=== PATIENT | female | born 1980 | race Caucasian/White ===

== ENCOUNTER 2016-12-19 14:23 | Observation (INO) | payer OTHER ==
[~2016-12-19] VITALS: Ht 180.3 cm; Wt 84.5 kg
[2016-12-19] MEDS ORDERED: ENOX80IN SQ (15:28)
[2016-12-19] MEDS ORDERED: ASPI81TA28 PO (15:28)
[2016-12-19] MEDS ORDERED: CLR10 PO (15:28)
[2016-12-19] MEDS ORDERED: FLUT0.15 NAE (15:28)
--- NOTE | 2016-12-19 15:47 | EMERGENCY ROOM VISIT NOTE ---
History Report prepared by Triston: David Isbell Under the Supervision of: Dr. Cristino Turner M.D. First contact with patient: 15:20 Chief Complaint: NEURO SYMPTOMS Stated Complaint: FACIAL/LF ARM NUMBNESS,HIGH BP Nursing Triage Summary: Triage note: pt reports "i feel like i might pass out and my whole left side is numb." pt reports left sided numbness has been increasing over the past several days. pt able to move all extremities in triage. pt mother reports pt has hx of clotting disorder "and she has stents in her vena cava." History of Present Illness The patient is a 36 year old female who presents to the Emergency Room with complaints of persistent left face, arm, and leg paraesthesias beginning about 3 days ago. She notes she has been sick for the past couple of days, and had been doing work outdoors 3 days ago in the cold. She notes at this time, she developed swelling to her bottom lip, and pressure in her temples. The patient went to her PCP and was told this may be allergies. She reports that night she developed a fever, which has resolved this morning. Today, she started to feel as if she was going to pass out, and was experiencing pins and needles sensation in her left shoulder, down to her fingers, left leg, and left side of her neck and face. She adds that her blood pressure was in the 150s which is high for her. The patient reports having a clotting a disorder, and had a clot about 10 years ago. She indicates that her vena cava is stented, and is not currently on Lovenox. She admits to currently taking a baby aspirin, and adds that she has varicose veins in her legs and leg swelling at baseline. The patient denies any recent falls or head trauma, or shortness of breath, but admits to some pain in the middle of her back. The patient reports a family history of clotting disorder. Review of Systems See HPI for pertinent positives & negatives. A total of 10 systems reviewed and were otherwise negative. 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 Family History Diabetes mellitus FHx: cancer FHx: heart disease Hypertension Seizures Social History Smoking Status: Never Smoker Smokeless Tobacco Use: No Alcohol Use: occasionally Housing Status: lives with family Occupation Status: unemployed Current/Historical Medications Scheduled Aspirin (Aspirin Ec), 81 MG PO DAILY Scheduled PRN Enoxaparin (Lovenox), 80 MG SQ UD PRN for Risk for Blood Clot/Traveling Fluticasone Propionate (Nasal) (Flonase Allergy Relief), 2 SPRAYS RICHY DAILY PRN for Allergy Symptoms Loratadine (Claritin), 10 MG PO DAILY PRN for Allergy Symptoms Allergies Uncoded Allergies: SYNTHETIC HORMONES (Allergy, Intermediate, Risk for blood clots, 12/19/16) Physical Exam Vital Signs Date Time Temp Pulse Resp B/P Pulse Ox O2 Delivery O2 Flow Rate FiO2 12/19/16 15:42 78 16 146/86 98 Room Air 12/19/16 14:29 36.6 85 18 174/108 99 Room Air Physical Exam GENERAL: Patient is anxious appearing and in no acute distress. HEENT: No acute trauma, normocephalic atraumatic, mucous membranes moist, no nasal congestion, no scleral icterus. NECK: No stridor, no adenopathy, no meningismus, trachea is midline. LUNGS: No dyspnea. Clear to auscultation and equal bilaterally. No wheeze, no rhonchi. HEART: Regular rate and rhythm. No murmurs, rubs, gallops appreciated. ABDOMEN: Soft, nontender, bowel sounds positive, no masses appreciated, no peritonitis. BACK: No midline tenderness, no CVA tenderness EXTREMITIES: Normal motion all extremities, no cyanosis, no edema. NEUROLOGIC: Alert and oriented, no acute motor or sensory deficits, no focal weakness, cranial nerves grossly intact. SKIN: No rash, no jaundice, no diaphoresis. Medical Decision & Procedures ER Provider Diagnostic Interpretation: Radiology results and stated below per my review and radiologist interpretation: HEAD CT NONCONTRAST Findings: The paranasal sinuses and mastoid air cells are clear. The calvarium and skull base are intact. The ventricles and sulci are within normal limits. There is no mass, hematoma, midline shift, or acute infarct. Impression: No acute intracranial abnormality. Electronically signed by: Yemi Riddle M.D. 12/19/2016 4:22 PM Dictated Date/Time: 12/19/2016 4:20 PM CHEST ONE VIEW PORTABLE FINDINGS: The lungs are clear. Cardiac silhouette is normal in size. No pleural effusions. No pneumothorax. IMPRESSION: No acute process. Electronically signed by: Yemi Riddle M.D. 12/19/2016 3:55 PM Dictated Date/Time: 12/19/2016 3:55 PM Laboratory Results 12/19/16 14:50 Red Blood Count 4.37, Mean Corpuscular Volume 96.6, Mean Corpuscular Hemoglobin 32.5, Mean Corpuscular Hemoglobin Concent 33.6, Mean Platelet Volume 11.8, Neutrophils (%) (Auto) 53.8, Lymphocytes (%) (Auto) 26.1, Monocytes (%) (Auto) 17.3, Eosinophils (%) (Auto) 2.2, Basophils (%) (Auto) 0.3, Neutrophils # (Auto ) 2.00, Lymphocytes # (Auto) 0.97, Monocytes # (Auto) 0.64, Eosinophils # (Auto ) 0.08, Basophils # (Auto) 0.01 12/19/16 14:50 Test 12/19/16 14:50 White Blood Count 3.71 K/uL (4.8-10.8) Red Blood Count 4.37 M/uL (4.2-5.4) Hemoglobin 14.2 g/dL (12.0-16.0) Hematocrit 42.2 % (37-47) Mean Corpuscular Volume 96.6 fL (80-100) Mean Corpuscular Hemoglobin 32.5 pg (25-34) Mean Corpuscular Hemoglobin Concent 33.6 g/dl (32-36) Platelet Count 97 K/uL (130-400) Mean Platelet Volume 11.8 fL (7.4-10.4) Neutrophils (%) (Auto) 53.8 % Lymphocytes (%) (Auto) 26.1 % Monocytes (%) (Auto) 17.3 % Eosinophils (%) (Auto) 2.2 % Basophils (%) (Auto) 0.3 % Neutrophils # (Auto) 2.00 K/uL (1.4-6.5) Lymphocytes # (Auto) 0.97 K/uL (1.2-3.4) Monocytes # (Auto) 0.64 K/uL (0.11-0.59) Eosinophils # (Auto) 0.08 K/uL (0-0.5) Basophils # (Auto) 0.01 K/uL (0-0.2) RDW Standard Deviation 45.0 fL (36.4-46.3) RDW Coefficient of Variation 12.7 % (11.5-14.5) Immature Granulocyte % (Auto) 0.3 % Immature Granulocyte # (Auto) 0.01 K/uL (0.00-0.02) Platelet Estimate DECREASED Red Blood Cell Morphology Unremarkable Erythrocyte Sedimentation Rate 5 mm/hr (0-21) Prothrombin Time 10.8 SECONDS (9.0-12.0) Prothromb Time International Ratio 1.0 (0.9-1.1) Activated Partial Thromboplast Time 25.7 SECONDS (21.0-31.0) Partial Thromboplastin Ratio 1.0 Anion Gap 6.0 mmol/L (3-11) Est Creatinine Clear Calc Drug Dose 93.6 ml/min Estimated GFR () 92.8 Estimated GFR (Non- 80.0 BUN/Creatinine Ratio 13.3 (10-20) Calcium Level 9.0 mg/dl (8.5-10.1) Troponin I 0.019 ng/ml (0-0.045) C-Reactive Protein 0.84 mg/dl (0-0.29) Thyroid Stimulating Hormone (TSH) 4.890 uIu/ml (0.300-4.500) Monoscreen NEG (NEG) Laboratory results as reviewed by me. ECG Indication: other (neuro symptoms) Rate (beats per minute): 79 Rhythm: normal sinus Findings: no acute ischemic change, no ectopy ED Course 1538: The patient was evaluated in room A12A. A complete history and physical exam was performed. 1635: Discussed the patient's case with VIRGIE Cutler. The patient will be evaluated for further treatment and disposition. Medical Decision Differential: Sepsis, Infectious (UTI/Pneumonia/Meningitis/etc), Metabolic/ Electrolyte Abnormality, Cardiac, Hepatic, Endocrine, Toxicologic, Neurologic, amongst other pathologies entertained. 36 yr old female arrives for evaluation of left arm paresthesias with some head/ neck/left leg involvement as well. No neuro deficits. She is HTN though suspect this is more anxiety related. She does have history of clotting disorder and is not currently on blood thinners. ASA taken by patient earlier today. Symptoms sound viral which may explain the thrombocytopenia and mild neutropenia as well. However, with her clotting disorder, symptoms and HTN I can not reliably rule out stroke in ED and thus have asked hospitalist to evaluate for further work-up and evaluation. Consults Time Called: 1630 Consulting Physician: VIRGIE Cutler Returned Call: 1635 Discussed the patient's case with VIRGIE Cutler. The patient will be evaluated for further treatment and disposition. Impression Primary Impression: Arm paresthesia, left Additional Impressions: Thrombocytopenia Neutropenia Scribe Attestation The scribe's documentation has been prepared under my direction and personally reviewed by me in its entirety. I confirm that the note above accurately reflects all work, treatment, procedures, and medical decision making performed by me. Departure Information Dispostion Being Evaluated By Hospitalist Referrals Kellie Delgado M.D. (PCP) Patient Instructions [facility] Problem Qualifiers Additional Impressions: Neutropenia Neutropenia type: unspecified Qualified Codes: D70.9 - Neutropenia, unspecified
[2016-12-19 15:52] LABS: PROTHROMBIN TIME (PATIENT) 10.8 SECONDS (9.0-12.0)
[2016-12-19 15:56] LABS: BUN/CREATININE RATIO 13.3 (10-20); CREATININE 0.91 mg/dl (0.60-1.20); POTASSIUM 3.9 mmol/L (3.5-5.1)
--- NOTE | 2016-12-19 15:58 | DIAGNOSTIC IMAGING REPORT ---
CHEST ONE VIEW PORTABLE HISTORY: Atypical Chest Pain COMPARISON: None. FINDINGS: The lungs are clear. Cardiac silhouette is normal in size. No pleural effusions. No pneumothorax. IMPRESSION: No acute process. Electronically signed by: Yemi Riddle M.D. 12/19/2016 3:55 PM Dictated Date/Time: 12/19/2016 3:55 PM
[2016-12-19 16:18] LABS: HEMATOCRIT 42.2 % (37-47); MEAN CELL VOLUME 96.6 fL (80-100); MEAN CORPUSCULAR HEMOGLOBIN 32.5 pg (25-34); MEAN CORPUSCULAR HGB CONC 33.6 g/dl (32-36); MEAN PLATELET VOLUME 11.8 fL (7.4-10.4); PLATELET COUNT 97 K/uL (130-400); RED BLOOD COUNT 4.37 M/uL (4.2-5.4); WHITE BLOOD COUNT 3.71 K/uL (4.8-10.8)
[2016-12-19 16:19] LABS: BASO % 0.3 %; BASO ABS # 0.01 K/uL (0-0.2); COMPLETE YES; EOS % 2.2 %; IG% 0.3 %; LYMPH % 26.1 %; LYMPH ABS # 0.97 K/uL (1.2-3.4); MONO % 17.3 %; NEUT % 53.8 %; PLT ESTIMATE DECREASED
--- NOTE | 2016-12-19 16:24 | DIAGNOSTIC IMAGING REPORT ---
HEAD CT NONCONTRAST CT DOSE: 537.48 mGy.cm HISTORY: left side body paresthesias/hypertension. History clotting dz TECHNIQUE: Multiaxial CT images of the head were performed without the use of intravenous contrast. Automated exposure control was utilized for this study. Comparison: None. Findings: The paranasal sinuses and mastoid air cells are clear. The calvarium and skull base are intact. The ventricles and sulci are within normal limits. There is no mass, hematoma, midline shift, or acute infarct. Impression: No acute intracranial abnormality. Electronically signed by: Yemi Riddle M.D. 12/19/2016 4:22 PM Dictated Date/Time: 12/19/2016 4:20 PM
[2016-12-19] MEDS ORDERED: ONDANSETRON INJ 2 MG/ML 2 ML VIAL IV PRN (17:30)
[2016-12-19] MEDS ORDERED: PHARMACIST DISCHARGE MED REC CONSULT PRN (17:30)
[2016-12-19 17:49] LABS: C-REACTIVE PROTEIN 0.84 mg/dl (0-0.29); THYROID STIMULATING HORMONE 4.89 uIu/ml (0.300-4.500)
--- NOTE | 2016-12-19 18:24 | History and Physical ---
History & Physical Date & Time of Service: Dec 19, 2016 at 17:47 Chief Complaint: Headache, Left Facial, Arm, and Leg Numbness Primary Care Physician: Kellie Delgado M.D. History of Present Illness 36 year old female who presents to the ER with headache and left hemiparesis. Patient reports a few days ago she was doing a lot of yard work outside. When she went into her home, she noted the bridge of her nose and bottom lip to be swollen. She went to her PCP who prescribed her Claritin and Flonase. She reports those symptoms resolved and then she developed malaise, low grade fever , BL temporal headache, and sinus pressure. She again went back to her PCP and was diagnosed with a viral URI. She reports no fever as of last night and the other symptoms are going away as well. This morning patient reports that she felt lightheaded and dizzy at times. She reports it was sometimes associated with standing. She then developed left arm and left leg numbness. She denies weakness in the LUE or LLE. No headache aside from the aforementioned. She denies blurred vision and neck stiffness. No chest pain, shortness of breath, or palpitations. No abdominal pain, nausea, vomiting, or diarrhea. She denies urinary symptoms. In the ER, patient's work up is unremarkable. Numbness is improving and reports she only notes the leg numbness when she ambulates. 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 Status: Chronic (3) Renal vein thrombosis Permanent Comment: s/p stent Status: Chronic Family History Scleroderma BROTHER Social History Smoking Status: Former Smoker Alcohol Use: 3-4 glasses of wine or beers/day Immunizations History of Influenza Vaccine: Yes Influenza Vaccine Date: Jun 11, 2016 History of Tetanus Vaccine?: Yes Tetanus Immunization Date: Aug 29, 2009 Multi-Drug Resistant Organisms History of MDRO: No Allergies Uncoded Allergies: SYNTHETIC HORMONES (Allergy, Intermediate, Risk for blood clots, 12/19/16) Home Medications Scheduled Aspirin (Aspirin Ec), 81 MG PO DAILY Scheduled PRN Enoxaparin (Lovenox), 80 MG SQ UD PRN for Risk for Blood Clot/Traveling Fluticasone Propionate (Nasal) (Flonase Allergy Relief), 2 SPRAYS RICHY DAILY PRN for Allergy Symptoms Loratadine (Claritin), 10 MG PO DAILY PRN for Allergy Symptoms Review of Systems 10 point review of systems was completed with the pertinent positives and negatives noted per the HPI Physical Exam Vital Signs Date Time Temp Pulse Resp B/P Pulse Ox O2 Delivery O2 Flow Rate FiO2 12/19/16 15:42 78 16 146/86 98 Room Air 12/19/16 14:29 36.6 85 18 174/108 99 Room Air General Appearance: no apparent distress Head: normocephalic Eyes: normal inspection ENT: hearing grossly normal Neck: supple, no JVD Respiratory/Chest: lungs clear, normal breath sounds, no respiratory distress Cardiovascular: regular rate, rhythm, no edema, normal peripheral pulses Abdomen/GI: normal bowel sounds, non tender, soft Extremities/Musculoskelatal: normal inspection, no calf tenderness Neurologic/Psych: alert, oriented x 3, + sensory deficit (mild decreased sensation to left face and LUE), + pertinent finding (no motor deficits, strength strong and equal in BLUE and BLLE) Skin: normal color, warm/dry Diagnostics Laboratory Results Results Past 24 Hours Test 12/19/16 14:50 Range/Units White Blood Count 3.71 4.8-10.8 K/uL Red Blood Count 4.37 4.2-5.4 M/uL Hemoglobin 14.2 12.0-16.0 g/dL Hematocrit 42.2 37-47 % Mean Corpuscular Volume 96.6 80-100 fL Mean Corpuscular Hemoglobin 32.5 25-34 pg Mean Corpuscular Hemoglobin Concent 33.6 32-36 g/dl Platelet Count 97 130-400 K/uL Mean Platelet Volume 11.8 7.4-10.4 fL Neutrophils (%) (Auto) 53.8 % Lymphocytes (%) (Auto) 26.1 % Monocytes (%) (Auto) 17.3 % Eosinophils (%) (Auto) 2.2 % Basophils (%) (Auto) 0.3 % Neutrophils # (Auto) 2.00 1.4-6.5 K/uL Lymphocytes # (Auto) 0.97 1.2-3.4 K/uL Monocytes # (Auto) 0.64 0.11-0.59 K/uL Eosinophils # (Auto) 0.08 0-0.5 K/uL Basophils # (Auto) 0.01 0-0.2 K/uL RDW Standard Deviation 45.0 36.4-46.3 fL RDW Coefficient of Variation 12.7 11.5-14.5 % Immature Granulocyte % (Auto) 0.3 % Immature Granulocyte # (Auto) 0.01 0.00-0.02 K/uL Platelet Estimate DECREASED Red Blood Cell Morphology Unremarkable Erythrocyte Sedimentation Rate 5 0-21 mm/hr Prothrombin Time 10.8 9.0-12.0 SECONDS Prothromb Time International Ratio 1.0 0.9-1.1 Activated Partial Thromboplast Time 25.7 21.0-31.0 SECONDS Partial Thromboplastin Ratio 1.0 Sodium Level 141 136-145 mmol/L Potassium Level 3.9 3.5-5.1 mmol/L Chloride Level 106 98-107 mmol/L Carbon Dioxide Level 29 21-32 mmol/L Anion Gap 6.0 3-11 mmol/L Blood Urea Nitrogen 12 7-18 mg/dl Creatinine 0.91 0.60-1.20 mg/dl Est Creatinine Clear Calc Drug Dose 93.6 ml/min Estimated GFR () 92.8 Estimated GFR (Non- 80.0 BUN/Creatinine Ratio 13.3 10-20 Random Glucose 111 70-99 mg/dl Calcium Level 9.0 8.5-10.1 mg/dl Troponin I 0.019 0-0.045 ng/ml Diagnostic Radiology CT Head Impression: No acute intracranial abnormality. CXR IMPRESSION: No acute process. Impression Assessment and Plan LEFT SIDED PARESTHESIAS - admit to tele - patient presenting with paraesthesia involving the left side of her face, left arm, and left leg without associated motor weakness - hx of plasminogen deficiency with remote history of IVC and renal vein thrombosis - CT head negative - due to hypercoagulable state, need to rule out stroke - neuro checks, check MRI/MRA brain - neuro consult, input appreciated - continue ASA - other etiologies considered - complex migraine, rheumatologic disorder (i.e scleroderma as per brother was recently diagnosed with similar presenting symptoms) - HEMANT, scleroderma and centromere antibodies ordered HX PLASMINOGEN DEFICIENCY, IVC AND RENAL VEIN THROMBOSIS S/P STENT - now managed on ASA 81mg daily and PRN Lovenox for long travel or DVT PROPHYLAXIS - SCDs, ambulate DISPO - The patient will be placed as observation status for now until further work up is complete. Level of Care Telemetry Resuscitation Status FULL RESUSCITATION VTE Prophylaxis VTE Risk Assessment Done? Y/N: Yes Risk Level: Moderate Given or contraindicated: SCD's Note I have seen and examined the patient and agree with the note above. She has no focal deficits with tingling mostly in fingertips and not appreciable on exam in any upper dermatome. She has no other stroke-like symptoms. She does report some skin swelling/thickening? 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 Brother recently diagnosed with diffuse scleroderma and had similar symptoms one year ago. Cont with TIA workup, consult Neurology and will obtain autoantibodies for scleroderma in the setting of recent facial swelling, significant h/o Raynaud's, tendon issues in her hands and family h/o scleroderma. She has a Rheum appointment (initial encounter) for early March. If positive, this may expedite getting her seen earlier. DO Reji
[2016-12-19] MEDS ORDERED: IV FLUIDS COMPLETED PRN (18:30)
[2016-12-19 19:00] VITALS: BP 146/88; PULSE 79; TEMP 36.8; O2SAT 98; Ht 180.3 cm; Wt 84.5 kg
[2016-12-19 19:22] VITALS: BP 136/84; PULSE 74; TEMP 36.8; O2SAT 97
--- NOTE | 2016-12-19 21:48 | DIAGNOSTIC IMAGING REPORT ---
Brain MRI WITH AND WITHOUT CONTRAST HISTORY: Facial numbness. Left arm numbness. Stroke TECHNIQUE: Multiplanar multisequence MRI of the brain was performed both before and after the intravenous administration of contrast. COMPARISON STUDY: Head CT 12/19/2016. FINDINGS: There are no areas of restricted diffusion to suggest acute infarction. The midline structures are intact. The paranasal sinuses are clear. The mastoid air cells are clear. The ventricles and sulci are within normal limits for age. There is no mass, hematoma, midline shift. The major vascular flow-voids at the skull base are well maintained. Postcontrast sequences show no areas of abnormal enhancement. IMPRESSION: No acute intracranial abnormality. Electronically signed by: Yemi iRddle M.D. 12/19/2016 9:46 PM Dictated Date/Time: 12/19/2016 9:41 PM
--- NOTE | 2016-12-19 21:52 | DIAGNOSTIC IMAGING REPORT ---
Brain MRA HISTORY: Facial numbness. Left arm numbness. Stroke - Attention to [place] TECHNIQUE: 3-D [id number] MRA of the brain was performed without contrast. COMPARISON STUDY: None. FINDINGS: Visualized intracranial internal carotid arteries, distal vertebral arteries, and basilar artery are widely patent. There is no significant stenosis, occlusion, or aneurysm seen within the bilateral MCAs or pressfitter. The right KERI is widely patent. The left A2/A3 segment is hypoplastic in comparison to the right. However, there is no evidence for occlusion. IMPRESSION: The left A2/A3 segment is hypoplastic in comparison to the right. However, there is no evidence for occlusion. This could be congenital or due to vasospasm. Otherwise, no significant stenosis, occlusion, or aneurysm within the [place]. Electronically signed by: Yemi Riddle M.D. 12/19/2016 9:50 PM Dictated Date/Time: 12/19/2016 9:46 PM
[2016-12-19 23:55] VITALS: BP 121/72; PULSE 59; TEMP 36.7; O2SAT 99
[2016-12-20] VITALS (8 sets, daily range): BP systolic 111–142; BP diastolic 74–92; PULSE 57–80; TEMP 36.3–36.7; O2SAT 98–100
[2016-12-20] MEDS: ACETAMINOPHEN 325 MG TAB PO PRN ×3 (03:39→23:19)
[2016-12-20 05:50] LABS: ESTIMATED AVERAGE GLUCOSE 100 mg/dl; HA1C FLAG Normal (Normal)
[2016-12-20 06:59] LABS: HEMATOCRIT 39.8 % (37-47); MEAN CELL VOLUME 96.4 fL (80-100); MEAN CORPUSCULAR HEMOGLOBIN 32.2 pg (25-34); MEAN CORPUSCULAR HGB CONC 33.4 g/dl (32-36); RED BLOOD COUNT 4.13 M/uL (4.2-5.4); WHITE BLOOD COUNT 3.27 K/uL (4.8-10.8)
[2016-12-20 07:00] LABS: MEAN PLATELET VOLUME 11.4 fL (7.4-10.4); PLATELET COUNT 91 K/uL (130-400)
[2016-12-20 07:21] LABS: PLT ESTIMATE DECREASED
[2016-12-20 07:35] LABS: BUN/CREATININE RATIO 12.2 (10-20); CALCIUM 8.6 mg/dl (8.5-10.1); CREATININE 0.75 mg/dl (0.60-1.20); POTASSIUM 4.1 mmol/L (3.5-5.1)
[2016-12-20 07:39] LABS: CHOLESTEROL/HDL RATIO 1.7
[2016-12-20] MEDS: ASPIRIN 81 MG ECTAB PO SCH (07:47)
--- NOTE | 2016-12-20 10:47 | ECHOCARDIOGRAM REPORT ---
*NOTICE TO RECEIVING CONSTITUTION PARTY AGENCY This information is strictly Confidential and protected under [place] law. [place] law prohibits you from making any further disclosure of this information unless further disclosure is expressly permitted by the written consent of the person to whom it pertains or is authorized by law. A general authorization for the release of medical or other information is not sufficient for this purpose. Hospital accepts no responsibility if the information is made available to any other person, INCLUDING THE PATIENT. Interpretation Summary * Name: SANGEETHA MONTALVO Study Date: 12/20/2016 06:55 AM BP: 120/75 mmHg * Patient Location: C.2T\S\E218\S\1 HR: 57 * : 1980 (M/d/yyyy) Gender: Female Height: 71 in * Age: 36 yrs Ethnicity: CA Weight: 185 lb * Ordering Physician: Tamra Matthews * Referring Physician: Self, Referred * Performed By: Shital Strong RDCS * * Reason For Study: TIA * BSA: 2.0 m2 * History: TIA * -- Conclusions -- * Injection of contrast documented an interatrial shunt. * A tiny patent foramen ovale is suspected. * Otherwise normal echo. Procedure Details * A saline contrast injection was performed to assess for cardiac shunting. * The injection was performed through an intravenous line in the right arm. * The attending nurse who injected the saline contrast was DMITRIY TIJERINA RN. * A total of 20 cc of agitated saline was given. Left Ventricle * The left ventricle is normal in size. * There is normal left ventricular wall thickness. * Ejection Fraction = 55-60%. * Left ventricular systolic function is normal. Right Ventricle * The right ventricle is normal in size and function. * There is normal right ventricular wall thickness. * The right ventricular systolic function is normal. Atria * The left atrial size is normal. * Right atrial size is normal. * Injection of contrast documented an interatrial shunt. * A patent foramen ovale is suspected. Mitral Valve * The mitral valve is normal in structure and function. * There is no mitral valve stenosis. * There is no mitral regurgitation noted. Tricuspid Valve * The tricuspid valve is normal in structure and function. * There is trace tricuspid regurgitation. Aortic Valve * The aortic valve is normal in structure and function. * No aortic regurgitation is present. Pulmonic Valve * The pulmonic valve is normal in structure and function. * There is no pulmonic valvular regurgitation. Great Vessels * The aortic root is normal size. * No obvious dissection could be visualized. * The pulmonary artery is normal size. Pericardium/Pleural * There is no pericardial effusion. MMode 2D Measurements and Calculations IVSd 1.0 cm IVSs 1.3 cm LVIDd 4.7 cm LVIDs 3.3 cm LVPWd 1.2 cm LVPWs 1.7 cm IVS/LVPW 0.89 FS 29.5 % EDV(Teich) 100.0 ml ESV(Teich) 43.6 ml EF(Teich) 56.4 % EDV(cubed) 100.8 ml ESV(cubed) 35.4 ml EF(cubed) 64.9 % % IVS thick 28.1 % % LVPW thick 46.6 % LV mass(C)d 183.3 grams LV mass(C)dI 89.9 grams/m\S\2 LV mass(C)s 179.4 grams LV mass(C)sI 87.9 grams/m\S\2 SV(Teich) 56.4 ml SI(Teich) 27.7 ml/m\S\2 SV(cubed) 65.4 ml SI(cubed) 32.1 ml/m\S\2 Ao root diam 2.9 cm Ao root area 6.6 cm\S\2 LA dimension 3.4 cm LA/Ao 1.2 LVAd ap4 35.1 cm\S\2 LVLd ap4 9.2 cm EDV(MOD-sp4) 117.1 ml EDV(sp4-el) 114.2 ml LVAs ap4 20.9 cm\S\2 LVLs ap4 8.0 cm ESV(MOD-sp4) 48.2 ml ESV(sp4-el) 46.1 ml EF(MOD-sp4) 58.9 % EF(sp4-el) 59.6 % LVAd ap2 31.9 cm\S\2 LVLd ap2 9.1 cm EDV(MOD-sp2) 100.3 ml EDV(sp2-el) 94.3 ml LVAs ap2 18.5 cm\S\2 LVLs ap2 7.9 cm ESV(MOD-sp2) 39.8 ml ESV(sp2-el) 36.8 ml EF(MOD-sp2) 60.3 % EF(sp2-el) 61.0 % LVLd %diff -0.31 % EDV(MOD-bp) 108.1 ml LVLs %diff -1.71 % ESV(MOD-bp) 43.5 ml EF(MOD-bp) 59.8 % SV(MOD-sp4) 68.9 ml SI(MOD-sp4) 33.8 ml/m\S\2 SV(MOD-sp2) 60.4 ml SI(MOD-sp2) 29.6 ml/m\S\2 SV(MOD-bp) 64.6 ml SI(MOD-bp) 31.7 ml/m\S\2 SV(sp4-el) 68.1 ml SI(sp4-el) 33.4 ml/m\S\2 SV(sp2-el) 57.5 ml SI(sp2-el) 28.2 ml/m\S\2 Doppler Measurements and Calculations MV E max torie 71.8 cm/sec MV A max torie 42.2 cm/sec MV E/A 1.7 MV dec time 0.27 sec Ao V2 max 114.7 cm/sec Ao max PG 5.3 mmHg Ao max PG (full) 0.06 mmHg LV V1 max PG 5.2 mmHg LV V1 max 114.0 cm/sec
--- NOTE | 2016-12-20 10:50 | Progress Note ---
Internal Med Progress Note Date of Service: Dec 20, 2016. Provider Documentation: SUBJECTIVE: The patient was seen and examined Complains of Headache Numbness and weakness of left sided extremities are almost resolved No new symptoms OBJECTIVE: Vital Signs-as noted below Exam: General-No distress at rest Eyes-normal ENT-normal Neck-Supple Lungs-Clear to auscultate bilaterally Heart-Regular,no murmur appreciated Abdomen-Benign,no masses,bowel sound present Extremities-No edema Minimal small vessel varicose veins bilaterally Neuro-AAOx3 No focal Neuro deficit Lab data as noted below. 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 MRA -The left A2/A3 segment is hypoplastic in comparison to the right. However, there is no evidence for occlusion. This could be congenital or due to vasospasm. Otherwise, no significant stenosis, occlusion, or aneurysm within the [place]. 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 -Initial Presentation in 2003 with back pain and bilateral legs swelling following the use of OCP for ~2 weeks -Had had 8 interventional radiologic procedure in 1 week to take care of thick and attached thrombus in IVC and Renal veins -S/P Stent in IVC and Renal Veins in 2003,recheck in 2004 and 2005 -wan on Coumadin for 1 year after the procedure and then tooh Pletal and Plavix for a some time -has been on Baby Aspirin for the last ~10 years - now managed on ASA 81mg daily and PRN Lovenox for long travel or -will need Hematology and Rheumatology appointment as an OP DVT PROPHYLAXIS - SCDs, ambulate DISPO Awaited Vital Signs: Date Time Temp Pulse Resp B/P Pulse Ox O2 Delivery O2 Flow Rate FiO2 12/20/16 16:00 100 Room Air 12/20/16 15:50 36.7 80 20 132/82 98 Room Air 12/20/16 12:14 36.6 70 16 122/88 99 Room Air 12/20/16 12:00 100 Room Air 12/20/16 08:00 100 Room Air 12/20/16 07:49 36.3 73 16 142/92 100 Room Air 12/20/16 04:02 Room Air 12/20/16 03:36 36.7 57 18 120/75 100 Room Air 12/20/16 00:02 Room Air 12/19/16 23:55 36.7 59 15 121/72 99 Room Air 12/19/16 20:04 Room Air 12/19/16 19:22 36.8 74 18 136/84 97 Room Air 12/19/16 19:00 36.8 79 19 146/88 98 Room Air Lab Results: Results Past 24 Hours Test 12/20/16 06:40 Range/Units White Blood Count 3.27 4.8-10.8 K/uL Red Blood Count 4.13 4.2-5.4 M/uL Hemoglobin 13.3 12.0-16.0 g/dL Hematocrit 39.8 37-47 % Mean Corpuscular Volume 96.4 80-100 fL Mean Corpuscular Hemoglobin 32.2 25-34 pg Mean Corpuscular Hemoglobin Concent 33.4 32-36 g/dl RDW Standard Deviation 44.8 36.4-46.3 fL RDW Coefficient of Variation 12.9 11.5-14.5 % Platelet Count 91 130-400 K/uL Mean Platelet Volume 11.4 7.4-10.4 fL Platelet Estimate DECREASED Erythrocyte Sedimentation Rate 2 0-21 mm/hr Sodium Level 140 136-145 mmol/L Potassium Level 4.1 3.5-5.1 mmol/L Chloride Level 106 98-107 mmol/L Carbon Dioxide Level 30 21-32 mmol/L Anion Gap 4.0 3-11 mmol/L Blood Urea Nitrogen 9 7-18 mg/dl Creatinine 0.75 0.60-1.20 mg/dl Est Creatinine Clear Calc Drug Dose 113.6 ml/min Estimated GFR () 117.2 Estimated GFR (Non- 101.1 BUN/Creatinine Ratio 12.2 10-20 Random Glucose 94 70-99 mg/dl Calcium Level 8.6 8.5-10.1 mg/dl Triglycerides Level 80 0-150 mg/dl Cholesterol Level 129 0-200 mg/dl HDL Cholesterol 76 mg/dl LDL Cholesterol, Calculated 37 mg/dl VLDL Cholesterol, Calculated 16 mg/dl Cholesterol/HDL Ratio 1.7
[2016-12-20] MEDS ORDERED: ENOXAPARIN 40 MG/0.4 ML SYR SQ ONE (12:00)
--- NOTE | 2016-12-20 14:24 | Neurology Consultation ---
Neurology Consultation Date of Consultation: Dec 20, 2016. Attending Physician: Juan Miguel Conley M.D. Primary Care Physician: Kellie Delgado M.D. Reason for Consultation: L hemiparesthesia History of Present Illness Source: patient Florinda is a 36 year old female who has a PMH plasminogen deficiency, raynauds, vasovagal syndrome presents to the ER with headache and left hemiparesis. She had been working outside planting 15 trees. When she looked in the mirror she saw the bridge of her nose and bottom lip to be swollen. She went to her PCP who prescribed her Claritin and Flonase. Those symptoms resolved but she then developed malaise, low grade fever, BL temporal headache, and sinus pressure which she was treated for a viral URI. She started to feel light headed reports that she felt lightheaded and dizzy at times which she often gets with standing. She then developed left arm and left leg numbness with no tingling or weakness. no blurred or double vision, CP, SOB, abdominal pain, N,V,D. The numbness has improved and reports she the tips of her finger are numb. She also starting having a headache in the neck and comes up over her head on the left side. She has no history of migraines. The only medications she takes regularly is aspirin 81 mg which is all she takes for her clotting disorder. she states she was tested for Lyme as an outpatient and it was reportedly negative Past Medical/Surgical History Medical Problems: (1) Arm paresthesia, left Status: Acute (2) Neutropenia Status: Acute (3) Thrombocytopenia Status: Acute Social History Alcohol Use: 3-4 glasses of wine or beers/day Housing Status: lives with family Allergies Uncoded Allergies: SYNTHETIC HORMONES (Allergy, Intermediate, Risk for blood clots, 12/19/16) Current Inpatient Medications Current Inpatient Medications Medications (Trade) Dose Ordered Sig/Kelsey Route Start Time Stop Time Status Last Admin Dose Admin Acetaminophen (Tylenol Tab) 650 mg Q4H PRN PO 12/19/16 17:30 01/18/17 17:29 12/20/16 07:46 650 MG Ondansetron HCl (Zofran Inj) 4 mg Q6H PRN IV 12/19/16 17:30 01/18/17 17:29 Miscellaneous Information (Pharmacist Discharge Med Rec Consult) 1 ea UD PRN N/A 12/19/16 17:30 01/18/17 17:29 Aspirin (Ecotrin Tab) 81 mg DAILY PO 12/20/16 09:00 01/19/17 08:59 12/20/16 07:47 81 MG Miscellaneous (Iv Fluids Completed) 1 ea PRN PRN N/A 12/19/16 18:30 12/19/17 18:29 Enoxaparin Sodium (Lovenox Inj) 40 mg QAM SQ 12/21/16 09:00 01/20/17 08:59 Physical Exam Vital Signs (Past 24 Hrs): Date Time Temp Pulse Resp B/P Pulse Ox O2 Delivery O2 Flow Rate FiO2 12/20/16 12:14 36.6 70 16 122/88 99 Room Air 12/20/16 12:00 100 Room Air 12/20/16 08:00 100 Room Air 12/20/16 07:49 36.3 73 16 142/92 100 Room Air 12/20/16 04:02 Room Air 12/20/16 03:36 36.7 57 18 120/75 100 Room Air 12/20/16 00:02 Room Air 12/19/16 23:55 36.7 59 15 121/72 99 Room Air 12/19/16 20:04 Room Air 12/19/16 19:22 36.8 74 18 136/84 97 Room Air 12/19/16 19:00 36.8 79 19 146/88 98 Room Air 12/19/16 15:42 78 16 146/86 98 Room Air 12/19/16 14:29 36.6 85 18 174/108 99 Room Air Physical Exam: Constitutional: appearance nourished, healthy and normal Ears, Nose, Mouth and Throat: mucous membranes moist, no injection and skin normal, eyes normal Cardiovascular: normal S-1 and S-2 and regular rate and rhythm Respiratory: clear to auscultation (CTA) and no rales, rhonchi or wheeze Musculoskeletal: no peripheral edema and good distal pulses Skin: no stigmata of neurocutaneous disease noted and normal and intact Eyes: extraocular muscles intact (EOMI) and pupils equal, round and reactive to light (PERRL), miotic NEUROLOGIC EXAMINATION: Mental status: Alert and interactive Oriented to full date and location Oriented to person Speech fluent with no evidence of aphasia Cranial Nerves smile eye brow raise symmetric tongue midline Reflexes: Deep tendon reflexes were symmetrical and graded 2/5. Plantar responses were flexor. Sensory: no deficit to cool touch, vibration bilateral tingling into finger and thumb with Phalen test Tinel test Coordination: Romberg absent Gait/Stance: Posture normal. Gait normal: with steady with steps, base, turning, heel and toe walking and tandem gait. Motor: Negative for pronator drift of out stretched arms with eyes closed. Strength: biceps triceps deltoids intrinsic 5/5 bilaterally, hip flex patellar flex ext plantar flex ext Laboratory Results Past 24 Hours: 12/20/16 06:40 12/20/16 06:40 Test 12/19/16 14:50 12/20/16 06:40 Immature Granulocyte % (Auto) 0.3 % White Blood Count 3.71 K/uL (4.8-10.8) Red Blood Count 4.37 M/uL (4.2-5.4) 4.13 M/uL (4.2-5.4) Hemoglobin 14.2 g/dL (12.0-16.0) Hematocrit 42.2 % (37-47) Mean Corpuscular Volume 96.6 fL (80-100) 96.4 fL (80-100) Mean Corpuscular Hemoglobin 32.5 pg (25-34) 32.2 pg (25-34) Mean Corpuscular Hemoglobin Concent 33.6 g/dl (32-36) 33.4 g/dl (32-36) Platelet Count 97 K/uL (130-400) Mean Platelet Volume 11.8 fL (7.4-10.4) 11.4 fL (7.4-10.4) Neutrophils (%) (Auto) 53.8 % Lymphocytes (%) (Auto) 26.1 % Monocytes (%) (Auto) 17.3 % Eosinophils (%) (Auto) 2.2 % Basophils (%) (Auto) 0.3 % Neutrophils # (Auto) 2.00 K/uL (1.4-6.5) Lymphocytes # (Auto) 0.97 K/uL (1.2-3.4) Monocytes # (Auto) 0.64 K/uL (0.11-0.59) Eosinophils # (Auto) 0.08 K/uL (0-0.5) Basophils # (Auto) 0.01 K/uL (0-0.2) Immature Granulocyte # (Auto) 0.01 K/uL (0.00-0.02) Red Blood Cell Morphology Unremarkable Erythrocyte Sedimentation Rate 5 mm/hr (0-21) Prothrombin Time 10.8 SECONDS (9.0-12.0) Prothromb Time International Ratio 1.0 (0.9-1.1) Activated Partial Thromboplast Time 25.7 SECONDS (21.0-31.0) Partial Thromboplastin Ratio 1.0 Estimated Average Glucose 100 mg/dl Hemoglobin A1c 5.1 % (4.5-5.6) Troponin I 0.019 ng/ml (0-0.045) C-Reactive Protein 0.84 mg/dl (0-0.29) Thyroid Stimulating Hormone (TSH) 4.890 uIu/ml (0.300-4.500) Monoscreen NEG (NEG) RDW Standard Deviation 44.8 fL (36.4-46.3) RDW Coefficient of Variation 12.9 % (11.5-14.5) Platelet Estimate DECREASED Anion Gap 4.0 mmol/L (3-11) Est Creatinine Clear Calc Drug Dose 113.6 ml/min Estimated GFR () 117.2 Estimated GFR (Non- 101.1 BUN/Creatinine Ratio 12.2 (10-20) Calcium Level 8.6 mg/dl (8.5-10.1) Triglycerides Level 80 mg/dl (0-150) Cholesterol Level 129 mg/dl (0-200) HDL Cholesterol 76 mg/dl LDL Cholesterol, Calculated 37 mg/dl VLDL Cholesterol, Calculated 16 mg/dl Cholesterol/HDL Ratio 1.7 Imaging MRI brain with and without- no acute abnormalities, lesions or structural issues MRA brain without- The left A2/A3 segment is hypoplastic in comparison to the right. However, there is no evidence for occlusion. This could be congenital or due to vasospasm. Otherwise, no significant stenosis, occlusion, or aneurysm within the [place]. TTE- * The left ventricle is normal in size. * There is normal left ventricular wall thickness. * Ejection Fraction = 55-60%. * small ASD Impression 36 year old female with left paraesthesia /headache resolved. Plan 1. carotid doppler of neck- evaluate vascular 2. MRI neck for possible structure issues-ordered 3. symptoms have resolved -continue aspirin at this time 4. sed rate ordered 5. no evidence of stroke on MRI or structural issues on MRA 6. TTE normal with small ASD 7. TSH elevated will need follow up -PCP 8. further recommendations to follow I have seen and discussed above patient with Dr Kim Edward, neurology PT seen and examined, discussed with ALE Coffey and Dr. Conley. the pt has hx of defect of plasminogen activator and had a DVT while on ocp thirteen years ago. She has a hx of rare acephalgic visaul migrainous phemenon. The pt has L arm and L leg numbness with some vague dizziness. Neurologic sx lasted greater than 8 hours with neg imaging. The following am the pt had an ipsilateral headache of mild severity.the pt admists to significant anxiety and personal stressors. Exam is normal. Impression, TIA vs acephalgic migrainous phenomenon vs anxiety Rec imaging of venous doppler UE and LE with venous imaging of the pelvis. JENY, cardiac monitoring and antiplt tx. Check status of coag defect, consider heme consult. I suspect she has been evaluated previously for other coagulopathies. GiMay also need further eval of mild neutropenia and thrombocytopenia. HAMMAD Edward MD
--- NOTE | 2016-12-20 15:44 | DIAGNOSTIC IMAGING REPORT ---
CAROTID ARTERY ULTRASOUND CLINICAL HISTORY: Left arm paresthesias. Headache. COMPARISON STUDY: None. TECHNIQUE: Real-time, grayscale, and color Doppler sonography of the carotid and vertebral arteries was performed. Images were viewed in the transverse and longitudinal planes. FINDINGS: No significant atherosclerotic plaque is identified. Velocity measurements are listed below. COMMON CAROTID PEAK SYSTOLIC VELOCITY (CM/S): RIGHT 112 LEFT 109 ICA PEAK SYSTOLIC VELOCITY (CM/S): RIGHT 77 LEFT 81 The systolic ratios between the internal to common carotid arteries are normal. Antegrade flow is seen in the vertebral arteries. The external carotid arteries are patent. Blood pressure in the right arm measured 151/86. Blood pressure in the left arm measured 152/87. IMPRESSION: 1. No evidence of a hemodynamically significant stenosis. 2. Mildly elevated blood pressure. Electronically signed by: Hugh Krishnan M.D. 12/20/2016 3:42 PM Dictated Date/Time: 12/20/2016 3:40 PM
[2016-12-20] MEDS ORDERED: OPTIRAY 320 IV PRN (16:45)
--- NOTE | 2016-12-20 17:26 | DIAGNOSTIC IMAGING REPORT ---
CT VENOGRAM OF THE ABDOMEN AND PELVIS WITH IV CONTRAST CLINICAL HISTORY: Dizziness. Lower extreme a numbness. Clinical concern for pelvic thrombus. COMPARISON STUDY: No priors. TECHNIQUE: Following the IV administration of 120 cc of Optiray 320, CT scan of the abdomen and pelvis is performed from the lung bases to the proximal femora. Images are reviewed in the axial, sagittal, and coronal planes. IV contrast was administered without complication. Automated dose control exposure was utilized. CT DOSE: 365.65 mGy.cm FINDINGS: Lung bases: The heart is top normal in size and without pericardial effusion. The lung bases are clear. Liver: The contrast-enhanced liver is normal in size, contour, and attenuation. There is no intrahepatic biliary ductal dilatation. The hepatic veins and portal veins are patent. Gallbladder: Unremarkable. Spleen: The spleen is enlarged. Pancreas: Unremarkable. Adrenal glands: Unremarkable. Kidneys: The contrast enhanced kidneys are normal in size and without hydronephrosis. The kidneys enhance symmetrically. Normal renal veins are not visualized. There are lumbar venous collaterals which appear to drain the left kidney. Abdominal vasculature: The abdominal aorta is normal in course and caliber. A stent is present in the IVC and appears patent. The inferior vena cava and iliac vessels are clear. The azygos vein appears enlarged. Bowel: The small bowel and colon are normal in course and caliber. The appendix is normal as visualized noting a calcified appendicolith. Peritoneum: There is no intraperitoneal free air or abdominal ascites. Lymphadenopathy: None. Pelvic viscera: The bladder, uterus, and adnexa are normal as visualized. Surgical clips are noted in the left groin. There is free fluid in the pelvis. Large collateral veins are present in the pelvis. Skeletal structures: No lytic or blastic lesions are seen. IMPRESSION: 1. No acute infectious or inflammatory findings are seen in the abdominal or pelvis. 2. Free fluid in the cul-de-sac is likely within physiologic limits. 3. A stent is noted in the inferior vena cava. The stent appears patent, as are the IVC and iliac veins. 4. Normal renal veins are not visualized. Large lumbar venous collaterals appear to drain the left kidney. This is likely chronic. Correlation with any prior outside imaging studies will be required. 5. Splenomegaly. 6. Additional findings as above. Electronically signed by: Luis Salter M.D. 12/20/2016 5:24 PM Dictated Date/Time: 12/20/2016 5:15 PM
[2016-12-20] MEDS: SODIUM CHLORIDE 0.9% 1000ML 1,000 ML IV SCH (17:30)
--- NOTE | 2016-12-20 18:56 | DIAGNOSTIC IMAGING REPORT ---
ULTRASOUND BILATERAL LOWER EXTREMITY VENOUS CLINICAL HISTORY: Lower extremity numbness. COMPARISON STUDY: No priors. TECHNIQUE: Real-time, grayscale, and color Doppler sonography of the deep veins of the right and left lower extremity was performed from the inguinal crease to the calf. Compression and augmentation were utilized. FINDINGS: There is no sonographic evidence of deep venous thrombosis identified in the right or left lower extremity. The common femoral, superficial femoral, and popliteal veins are patent and normally compressible bilaterally. The greater saphenous vein and the profunda femoris vein at the junction with the common femoral vein are clear in both legs. The visualized calf veins are patent bilaterally. IMPRESSION: There is no sonographic evidence of deep venous thrombosis identified in the right or left lower extremity. Electronically signed by: Luis Salter M.D. 12/20/2016 6:54 PM Dictated Date/Time: 12/20/2016 6:54 PM
[2016-12-21] VITALS (18 sets, daily range): BP systolic 115–169; BP diastolic 68–101; PULSE 68–101; TEMP 36.6–36.9; O2SAT 96–100
--- NOTE | 2016-12-21 07:03 | DIAGNOSTIC IMAGING REPORT ---
MRI CERVICAL WITHOUT CONTRAST CLINICAL HISTORY: Left arm radiculopathy. TECHNIQUE: Sagittal and axial T1, T2 and STIR images were obtained. COMPARISON STUDY: No previous studies for comparison. There are no suspicious areas of marrow replacement. No intrinsic cervical cord lesions are visualized. C2-3: There is no evidence of disc bulge or focal herniation. There is no spinal or foraminal stenosis. C3-4: There is no evidence of disc bulge or focal herniation. There is no spinal or foraminal stenosis. C4-5: There are no disc bulges or focal herniations. There is no spinal or foraminal stenosis. C5-6 :There is a tiny right foraminal disc bulge/protrusion. There is no significant spinal stenosis. Significant foraminal stenosis is not felt to be present C6-7: There is no evidence of disc bulge or focal herniation. There is no evidence of spinal or foraminal stenosis. C7-T1: There is no evidence of disc bulge or focal herniation. There is no evidence of spinal or foraminal stenosis. IMPRESSION:Tiny right foraminal disc bulge/protrusion at the C5-6 level. Otherwise unremarkable MRI of the cervical spine Electronically signed by: Collins Brink M.D. 12/21/2016 7:01 AM Dictated Date/Time: 12/21/2016 6:57 AM
[2016-12-21 07:08] LABS: HEMATOCRIT 39.7 % (37-47); MEAN CELL VOLUME 96.6 fL (80-100); MEAN CORPUSCULAR HEMOGLOBIN 31.9 pg (25-34); RED BLOOD COUNT 4.11 M/uL (4.2-5.4); WHITE BLOOD COUNT 3.53 K/uL (4.8-10.8)
[2016-12-21 07:25] LABS: MEAN PLATELET VOLUME 11.2 fL (7.4-10.4); PLATELET COUNT 91 K/uL (130-400)
[2016-12-21 07:47] LABS: BUN/CREATININE RATIO 12.3 (10-20); CALCIUM 8.2 mg/dl (8.5-10.1); CREATININE 0.8 mg/dl (0.60-1.20); POTASSIUM 3.5 mmol/L (3.5-5.1)
[2016-12-21] MEDS: SODIUM CHLORIDE 0.9% 1000ML 1,000 ML IV SCH (08:08)
[2016-12-21] MEDS ORDERED: ENOXAPARIN 40 MG/0.4 ML SYR SQ SCH (09:00)
[2016-12-21] MEDS: ASPIRIN 81 MG ECTAB PO SCH (09:00)
[2016-12-21] MEDS: ACETAMINOPHEN 325 MG TAB PO PRN (09:46)
--- NOTE | 2016-12-21 10:56 | Progress Note ---
Medicine Progress Note Date & Time of Visit: Dec 21, 2016 at 10:37. Subjective Pt was seen and examined Sitting in bed comfortable with no distress Pt said that she feels fine she said her numbness almost resolved, except some numbness at the tip of her fingers she said that she continue to have headache at the occipital area, but the headache improves denies any weakness, blurry vision, chest pain, palpitation and sob. Objective Last 8 Hrs Date Time Temp Pulse Resp B/P Pulse Ox O2 Delivery O2 Flow Rate FiO2 12/21/16 08:00 100 Room Air 12/21/16 07:38 36.8 76 18 123/77 98 12/21/16 04:02 Room Air 12/21/16 03:49 36.6 71 17 124/74 99 Room Air Physical Exam: General- no acute distress Head- atraumatic Eyes- PERRL, EOMI ENT- oropharynx clear Neck- supple, no JVD Lungs- clear to auscultation, No wheezing Heart- regular rhythm; no murmur Abdomen- normal bowel sounds, soft Extremities- no pretibial edema, no calf tenderness Neuro- alert, oriented x 3; PERRL, EOMI; no facial palsy; no dysarthria; motor 5 /5 bilaterally Skin- warm & dry Laboratory Results: Last 24 Hours Test 12/21/16 06:15 White Blood Count 3.53 K/uL Red Blood Count 4.11 M/uL Hemoglobin 13.1 g/dL Hematocrit 39.7 % Mean Corpuscular Volume 96.6 fL Mean Corpuscular Hemoglobin 31.9 pg Mean Corpuscular Hemoglobin Concent 33.0 g/dl RDW Standard Deviation 45.7 fL RDW Coefficient of Variation 12.9 % Platelet Count 91 K/uL Mean Platelet Volume 11.2 fL Sodium Level 141 mmol/L Potassium Level 3.5 mmol/L Chloride Level 108 mmol/L Carbon Dioxide Level 28 mmol/L Anion Gap 5.0 mmol/L Blood Urea Nitrogen 10 mg/dl Creatinine 0.80 mg/dl Est Creatinine Clear Calc Drug Dose 106.5 ml/min Estimated GFR () 108.4 Estimated GFR (Non- 93.5 BUN/Creatinine Ratio 12.3 Random Glucose 94 mg/dl Calcium Level 8.2 mg/dl Assessment & Plan LEFT SIDED PARESTHESIAS - patient presenting with paraesthesia involving the left side of her face, left arm, and left leg without associated motor weakness - 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 -MRI cervical showed tiny right foraminal disc bulge/protrusion at the C5-6 level. -MRI:: No acute intracranial abnormality. -MRA -The left A2/A3 segment is hypoplastic in comparison to the right. However , there is no evidence for occlusion. This could be congenital or due to vasospasm. Otherwise, no significant stenosis, occlusion, or aneurysm within the [place]. -Symptoms resolved -Lab pending for rheumatology markers - Echo done showed: * Injection of contrast documented an interatrial shunt. * A tiny patent foramen ovale is suspected. * Otherwise normal echo. 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 -Initial Presentation in 2003 with back pain and bilateral legs swelling following the use of OCP for ~2 weeks -Had had 8 interventional radiologic procedure in 1 week to take care of thick and attached thrombus in IVC and Renal veins -S/P Stent in IVC and Renal Veins in 2003,recheck in 2004 and 2005 -wan on Coumadin for 1 year after the procedure and then tooh Pletal and Plavix for a some time -has been on Baby Aspirin for the last ~10 years - now managed on ASA 81mg daily and PRN Lovenox for long travel or -Hematology and Rheumatology appointment as an OP -Discussed with neurology that recommended to start Plavix 75 mg today and continue until her hematology appt on Tuesday - defer further treatment to hematology HEADACHE -Improved DVT PROPHYLAXIS -SCDs, ambulate CODE STATUS FULL CODE Consultants: Cardio neurology Procedures: JENY Current Inpatient Medications: Current Inpatient Medications Medications (Trade) Dose Ordered Sig/Kelsey Route Start Time Stop Time Status Last Admin Dose Admin Acetaminophen (Tylenol Tab) 650 mg Q4H PRN PO 12/19/16 17:30 01/18/17 17:29 12/21/16 09:46 650 MG Ondansetron HCl (Zofran Inj) 4 mg Q6H PRN IV 12/19/16 17:30 01/18/17 17:29 Aspirin (Ecotrin Tab) 81 mg DAILY PO 12/20/16 09:00 01/19/17 08:59 12/20/16 07:47 81 MG Miscellaneous (Iv Fluids Completed) 1 ea PRN PRN N/A 12/19/16 18:30 12/19/17 18:29 Enoxaparin Sodium (Lovenox Inj) 40 mg QAM SQ 12/21/16 09:00 01/20/17 08:59 Ioversol 100 ml 100 ml UD PRN IV 12/20/16 16:45 12/24/16 16:44 Sodium Chloride (Nss 1000ml) 1,000 ml @ 75 mls/hr [id number] IV 12/20/16 17:30 12/21/16 20:09 12/21/16 08:08 75 MLS/HR
[2016-12-21] MEDS ORDERED: FENTANYL CITRATE INJ 50 MCG/1 ML 2 ML VIAL ONE (12:26)
[2016-12-21] MEDS ORDERED: BENZOCAIN/TETRACA/BUTAM SPRAY 200 APPLN/20 GM SPRY ONE (12:26)
[2016-12-21] MEDS ORDERED: MIDAZOLAM HCL 1 MG/ML 2ML VIAL ONE (12:26)
[2016-12-21] MEDS ORDERED: CANNULA ONE ×2 (12:27)
--- NOTE | 2016-12-21 14:01 | TEE ---
*NOTICE TO RECEIVING [employer] This information is strictly Confidential and protected under [place] law. [place] law prohibits you from making any further disclosure of this information unless further disclosure is expressly permitted by the written consent of the person to whom it pertains or is authorized by law. A general authorization for the release of medical or other information is not sufficient for this purpose. Hospital accepts no responsibility if the information is made available to any other person, INCLUDING THE PATIENT. 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 * A patent foramen ovale is present and there is low risk for embolism. * Very minimally positive microcav study. Procedure Details * JENY probe #3 was used during the procedure. TIME OUT: 1301 PROBE IN: 1308 PROBE OUT: 1317 * The study was performed in Cardiopulmonary Department. * Time out was conducted by the physician, nurse, and ultra sound technician with positive identification of patient and procedure. * Informed consent for Transesophageal Echocardiogram was obtained prior to the procedure. * An intravenous line was placed. A topical anesthetic agent was used for oropharangeal anesthesia. A bite block was inserted. * The patient's vital signs, including blood pressure, heart rate, pulse oximetry and cardiac rhythm were monitored throughout the procedure . * Fentanyl 25 mcg was administered for procedural sedation. * Midazolam 2 mg administered for sedation. * The posterior oropharynx was anesthetized using a topical anesthetic spray. A bite guard was inserted. * A multifrequency, multiplane transesopheageal echocardiographic endoscope was inserted and manipulated in the standard fashion to achieve multiplane views. * The transesophageal probe was passed without difficulty. * The usual views were obtained; basal, mid-esophageal, transgastric and aortic views. * The patient tolerated the procedure well without evidence of orophangeal or esophageal trauma. * Contrast injection with agitated saline was performed. * A 2D transesophageal echocardiogram with color flow Doppler was performed. Left Ventricle * The left ventricle is normal in size. * There is normal left ventricular wall thickness. * Left ventricular systolic function is normal. * Ejection Fraction = 60-65%. * The left ventricular wall motion is normal. Right Ventricle * The right ventricle is normal in size and function. Atria * The left atrial size is normal. * No thrombus is detected in the left atrial appendage. * Right atrial size is normal. * The interatrial septum is intact with no evidence for an atrial septal defect. * A patent foramen ovale is present and there is low risk for embolism. Mitral Valve * The mitral valve is normal in structure and function. Tricuspid Valve * The tricuspid valve is normal. * There is no tricuspid stenosis. * There is trace tricuspid regurgitation. Aortic Valve * The aortic valve is trileaflet. * No hemodynamically significant valvular aortic stenosis. * No aortic regurgitation is present. Pulmonic Valve * The pulmonic valve is not well seen, but is grossly normal. Great Vessels * The aortic root is normal size. Pericardium * There is no pericardial effusion.
[2016-12-21 15:01] LABS: ANTI-CENTROMERE AB <1.0 NEG AI (<1.0 NEG)
--- NOTE | 2016-12-21 16:50 | Discharge Instructions ---
Discharge Instructions Date of Service Dec 21, 2016. Admission Reason for Admission: Numbness Discharge Discharge Diagnosis / Problem: LEFT SIDED PARESTHESIAS, HX PLASMINOGEN DEFICIENCY Discharge Goals Goal(s): Decrease discomfort, Improve function, Improve disease control Activity Recommendations Activity Limitations: resume your previous activity (as tolerated) . Instructions / Follow-Up Instructions / Follow-Up Follow appointment with your primary care physician Dr. Delgado 0n Sunday 12/24 at 11 am Follow appointment with hematology Dr. Parkinson on 12/27 @ 10:15 am Follow appointment with Rheumatology Dr. An on 12/22 @ 1:40 PM Follow up with Neurology Dr. Edward in 3 weeks (Neurology's office will call you for the appointment) Current Hospital Diet Patient's current hospital diet: Regular Diet Discharge Diet Recommended Diet: Regular Diet Pending Studies Studies pending at discharge: no List of pending studies: Plasminogen act inhib Laboratory Results Hemoglobin A1c Test 12/19/16 14:50 Range/Units Estimated Average Glucose 100 mg/dl Hemoglobin A1c 5.1 4.5-5.6 % Lipid Panel Test 12/20/16 06:40 Range/Units Triglycerides Level 80 0-150 mg/dl Cholesterol Level 129 0-200 mg/dl HDL Cholesterol 76 mg/dl Cholesterol/HDL Ratio 1.7 LDL Cholesterol, Calculated 37 mg/dl Medical Emergencies . Who to Call and When: Medical Emergencies: If at any time you feel your situation is an emergency, please call 911 immediately. . Non-Emergent Contact Non-Emergency issues call your: Primary Care Provider . . "Provider Documentation" section prepared by Maria Victoria Santana. . VTE Core Measure Inpt VTE Proph given/why not?: SCD's
[2016-12-21] MEDS ORDERED: CLOPIDOGREL BISULFATE 75 MG TAB PO ONE (17:00)
--- NOTE | 2016-12-21 17:06 | Neurology Progress Notes ---
Neurology Progress Note Date of Service Dec 21, 2016. Carmella Neely is a 36 year old female who has a PMH plasminogen deficiency, raynauds, vasovagal syndrome presents to the ER with headache and left hemiparesis. She had been working outside planting 15 trees. When she looked in the mirror she saw the bridge of her nose and bottom lip to be swollen. She went to her PCP who prescribed her Claritin and Flonase. Those symptoms resolved but she then developed malaise, low grade fever, BL temporal headache, and sinus pressure which she was treated for a viral URI. She started to feel light headed reports that she felt lightheaded and dizzy at times which she often gets with standing. She then developed left arm and left leg numbness with no tingling or weakness. no blurred or double vision, CP, SOB, abdominal pain, N,V,D. The numbness has improved and reports she the tips of her finger are numb. She also starting having a headache in the neck and comes up over her head on the left side. She has no history of migraines. The only medications she takes regularly is aspirin 81 mg which is all she takes for her clotting disorder. she states she was tested for Lyme as an outpatient and it was reportedly negative Objective Date Time Temp Pulse Resp B/P Pulse Ox O2 Delivery O2 Flow Rate FiO2 12/21/16 16:00 98 Room Air 12/21/16 15:55 36.7 72 18 115/68 98 Room Air 12/21/16 13:49 79 16 129/72 97 Room Air 12/21/16 13:39 72 12 131/80 96 Room Air 12/21/16 13:29 73 14 134/77 99 Nasal Cannula 2.0 12/21/16 13:20 91 12 153/90 100 Nasal Cannula 2.0 12/21/16 13:17 Nasal Cannula 2.0 12/21/16 13:15 90 18 160/101 100 Nasal Cannula 2.0 12/21/16 13:10 101 16 169/95 100 Nasal Cannula 2.0 12/21/16 13:08 Nasal Cannula 2.0 12/21/16 13:07 74 18 148/80 100 Nasal Cannula 2.0 12/21/16 13:04 82 21 160/92 100 Nasal Cannula 2.0 12/21/16 12:41 84 16 157/82 100 Room Air 12/21/16 12:00 100 Room Air 12/21/16 11:26 36.9 80 18 128/99 96 12/21/16 08:00 100 Room Air 12/21/16 07:38 36.8 76 18 123/77 98 12/21/16 04:02 Room Air 12/21/16 03:49 36.6 71 17 124/74 99 Room Air 12/21/16 00:02 Room Air 12/21/16 00:01 36.7 68 21 125/77 98 Room Air 12/20/16 20:00 Room Air 12/20/16 19:49 36.5 63 18 111/74 99 Last 24 Hours Test 12/21/16 06:15 White Blood Count 3.53 K/uL Red Blood Count 4.11 M/uL Hemoglobin 13.1 g/dL Hematocrit 39.7 % Mean Corpuscular Volume 96.6 fL Mean Corpuscular Hemoglobin 31.9 pg Mean Corpuscular Hemoglobin Concent 33.0 g/dl RDW Standard Deviation 45.7 fL RDW Coefficient of Variation 12.9 % Platelet Count 91 K/uL Mean Platelet Volume 11.2 fL Sodium Level 141 mmol/L Potassium Level 3.5 mmol/L Chloride Level 108 mmol/L Carbon Dioxide Level 28 mmol/L Anion Gap 5.0 mmol/L Blood Urea Nitrogen 10 mg/dl Creatinine 0.80 mg/dl Est Creatinine Clear Calc Drug Dose 106.5 ml/min Estimated GFR () 108.4 Estimated GFR (Non- 93.5 BUN/Creatinine Ratio 12.3 Random Glucose 94 mg/dl Calcium Level 8.2 mg/dl Imaging: C spine MRI -Tiny right foraminal disc bulge/protrusion at the C5-6 level. Otherwise unremarkable MRI of the cervical spine CT abd. - 1. No acute infectious or inflammatory findings are seen in the abdominal or pelvis.. Free fluid in the cul-de-sac is likely within physiologic limits. . A stent is noted in the inferior vena cava. The stent appears patent, as are the IVC and iliac veins. Normal renal veins are not visualized. Large lumbar venous collaterals appear to drain the left kidney. This is likely chronic. Correlation with any prior outside imaging studies will be required. Splenomegaly. doppler LE- There is no sonographic evidence of deep venous thrombosis identified in the right or left lower extremity. Exam: sitting up in bed eating supper no exam done during this encounter Current Inpatient Medications Medications (Trade) Dose Ordered Sig/Kelsey Route Start Time Stop Time Status Last Admin Dose Admin Acetaminophen (Tylenol Tab) 650 mg Q4H PRN PO 12/19/16 17:30 01/18/17 17:29 12/21/16 09:46 650 MG Ondansetron HCl (Zofran Inj) 4 mg Q6H PRN IV 12/19/16 17:30 01/18/17 17:29 Aspirin (Ecotrin Tab) 81 mg DAILY PO 12/20/16 09:00 01/19/17 08:59 12/20/16 07:47 81 MG Miscellaneous (Iv Fluids Completed) 1 ea PRN PRN N/A 12/19/16 18:30 12/19/17 18:29 Enoxaparin Sodium (Lovenox Inj) 40 mg QAM SQ 12/21/16 09:00 01/20/17 08:59 Ioversol 100 ml 100 ml UD PRN IV 12/20/16 16:45 12/24/16 16:44 Sodium Chloride (Nss 1000ml) 1,000 ml @ 75 mls/hr [id number] IV 12/20/16 17:30 12/21/16 20:09 12/21/16 08:08 75 MLS/HR Impression 36 year old female with left paraesthesia /headache resolved. Plan 1. carotid doppler of neck- evaluate vascular 2. MRI neck for possible structure issues-some disc at 5/ 3. symptoms have resolved -continue aspirin at this time 4. sed rate ordered 5. no evidence of stroke on MRI or structural issues on MRA 6. TTE normal with small ASD, JENY today very small PFO 7. TSH elevated will need follow up -PCP 8. will start Plavix 75 mg today and continue until her hematology appointment on Tuesday - defer further treatment to hematology 9. will order a anti cardiolipin antibody as out patient I have seen and discussed above patient with Dr Kim Edward, neurology PT seen and examined. No new sx. NEg imaging in spite of greater than 8 hour of neurologic sx. MRI c spine noncontrib. JENY small PFO with min shunt. Unclear whether this was TIA, aceph migrainous phen or anxiety. Use asa 81 mg and Plavix. Await hematology consult this Tuesday. HAMMAD Edward MD
[2016-12-21] MEDS ORDERED: PLV75 PO (17:20)
[2016-12-22] MEDS ORDERED: CLOPIDOGREL BISULFATE 75 MG TAB PO SCH (09:00)
[2016-12-22 12:53] LABS: ANA TITER 1:40 TITER (<1:40)
--- NOTE | 2016-12-24 07:57 | Discharge Summary ---
Discharge Summary Date of Service Dec 24, 2016. 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 HEMANT HEADACHE Procedures: JENY Consultations: Cardio neurology Pending Studies/Follow-Up: PLASMINOGEN ACTIVATOR INH Medication Reconciliation New Medications: Clopidogrel Bisulfate (Clopidogrel) 75 Mg Tab 75 MG PO QAM for 30 Days, #30 TAB Continued Medications: Aspirin (Aspirin Ec) 81 Mg Tab 81 MG PO DAILY Enoxaparin (Lovenox) 80 Mg/0.8 Ml Inj 80 MG SQ UD PRN for Risk for Blood Clot/Traveling, SYR DIRECTED BY MD PRIOR TO DISTANT TRAVELING Fluticasone Propionate (Nasal) (Flonase Allergy Relief) 50 Mcg/Act Spr 2 SPRAYS RICHY DAILY PRN for Allergy Symptoms Loratadine (Claritin) 10 Mg Tab 10 MG PO DAILY PRN for Allergy Symptoms, TAB Admission Information HPI (per Admitting provider): 36 year old female who presents to the ER with headache and left hemiparesis. Patient reports a few days ago she was doing a lot of yard work outside. When she went into her home, she noted the bridge of her nose and bottom lip to be swollen. She went to her PCP who prescribed her Claritin and Flonase. She reports those symptoms resolved and then she developed malaise, low grade fever , BL temporal headache, and sinus pressure. She again went back to her PCP and was diagnosed with a viral URI. She reports no fever as of last night and the other symptoms are going away as well. This morning patient reports that she felt lightheaded and dizzy at times. She reports it was sometimes associated with standing. She then developed left arm and left leg numbness. She denies weakness in the LUE or LLE. No headache aside from the aforementioned. She denies blurred vision and neck stiffness. No chest pain, shortness of breath, or palpitations. No abdominal pain, nausea, vomiting, or diarrhea. She denies urinary symptoms. In the ER, patient's work up is unremarkable. Numbness is improving and reports she only notes the leg numbness when she ambulates. Physical Exam (per Admitting): General Appearance: no apparent distress Head: normocephalic Eyes: normal inspection ENT: hearing grossly normal Neck: supple, no JVD Respiratory/Chest: lungs clear, normal breath sounds, no respiratory distress Cardiovascular: regular rate, rhythm, no edema, normal peripheral pulses Abdomen/GI: normal bowel sounds, non tender, soft Extremities/Musculoskelatal: normal inspection, no calf tenderness Neurologic/Psych: alert, oriented x 3, + sensory deficit (mild decreased sensation to left face and LUE), + pertinent finding (no motor deficits, strength strong and equal in BLUE and BLLE) Skin: normal color, warm/dry Hospital Course LEFT SIDED PARESTHESIAS - patient presenting with paraesthesia involving the left side of her face, left arm, and left leg without associated motor weakness - 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 -MRI cervical showed tiny right foraminal disc bulge/protrusion at the C5-6 level. -MRI:: No acute intracranial abnormality. -MRA -The left A2/A3 segment is hypoplastic in comparison to the right. However , there is no evidence for occlusion. This could be congenital or due to vasospasm. Otherwise, no significant stenosis, occlusion, or aneurysm within the [place]. -Symptoms resolved -Lab pending for rheumatology markers - Echo done showed: * Injection of contrast documented an interatrial shunt. * A tiny patent foramen ovale is suspected. * Otherwise normal echo. 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 -Initial Presentation in 2003 with back pain and bilateral legs swelling following the use of OCP for ~2 weeks -Had had 8 interventional radiologic procedure in 1 week to take care of thick and attached thrombus in IVC and Renal veins -S/P Stent in IVC and Renal Veins in 2003,recheck in 2004 and 2005 -wan on Coumadin for 1 year after the procedure and then tooh Pletal and Plavix for a some time -has been on Baby Aspirin for the last ~10 years - now managed on ASA 81mg daily and PRN Lovenox for long travel or -Hematology and Rheumatology appointment as an OP -Discussed with neurology that recommended to start Plavix 75 mg today and continue until her hematology appt on Tuesday - defer further treatment to hematology HEADACHE -Improved DVT PROPHYLAXIS -SCDs, ambulate CODE STATUS FULL CODE Total time spent on discharge = 35 min This includes examination of the patient, discharge planning, medication reconciliation, and communication with other providers. Discharge Instructions Discharge Instructions Date of Service Dec 21, 2016. Admission Reason for Admission: Numbness Discharge Discharge Diagnosis / Problem: LEFT SIDED PARESTHESIAS, HX PLASMINOGEN DEFICIENCY Discharge Goals Goal(s): Decrease discomfort, Improve function, Improve disease control Activity Recommendations Activity Limitations: resume your previous activity (as tolerated) . Instructions / Follow-Up Instructions / Follow-Up Follow appointment with your primary care physician Dr. Delgado 0n Sunday 12/24 at 11 am Follow appointment with hematology Dr. Parkinson on 12/27 @ 10:15 am Follow appointment with Rheumatology Dr. An on 12/22 @ 1:40 PM Follow up with Neurology Dr. Edward in 3 weeks (Neurology's office will call you for the appointment) Current Hospital Diet Patient's current hospital diet: Regular Diet Discharge Diet Recommended Diet: Regular Diet Pending Studies Studies pending at discharge: no List of pending studies: Plasminogen act inhib Laboratory Results Hemoglobin A1c Test 12/19/16 14:50 Range/Units Estimated Average Glucose 100 mg/dl Hemoglobin A1c 5.1 4.5-5.6 % Lipid Panel Test 12/20/16 06:40 Range/Units Triglycerides Level 80 0-150 mg/dl Cholesterol Level 129 0-200 mg/dl HDL Cholesterol 76 mg/dl Cholesterol/HDL Ratio 1.7 LDL Cholesterol, Calculated 37 mg/dl Medical Emergencies . Who to Call and When: Medical Emergencies: If at any time you feel your situation is an emergency, please call 911 immediately. . Non-Emergent Contact Non-Emergency issues call your: Primary Care Provider . . "Provider Documentation" section prepared by Maria Victoria Santana. . VTE Core Measure Inpt VTE Proph given/why not?: SCD's Additional Copies To Kellie Delgado M.D.
== END 2016-12-21 17:46 | disposition home or self-care (01) ==
LOC: ENRESERVTM → ENRESERVDT → C.EDB 14:24 → C.2T 16:53 → EDBEDREQ 17:58
PROVIDERS: ADMIT Hospitalist; ATTEND Internal Medicine
DX: R20.2 Paresthesia of skin (principal); R51 Headache; D68.2 Hereditary deficiency of other clotting factors; Z79.82 Long term (current) use of aspirin; Z87.891 Personal history of nicotine dependence; Z83.3 Family history of diabetes mellitus; Z82.49 Family history of ischemic heart disease and other diseases of the circulatory system